=== PATIENT | female | born 1990 | race Caucasian/White ===

== ENCOUNTER 2017-05-29 20:32 | Outpatient (CLI) | payer BC ==
[~2017-05-29] VITALS: Ht 157.5 cm; Wt 62.0 kg
[~2017-05-29 20:32] MED LIST: IBUP-1222 PO; OXYC-302 PO
== END 2017-05-29 21:05 | disposition home or self-care (01) ==
LOC: LDOP 20:32
PROVIDERS: ATTEND Obstetrics & Gynecology
DX: O36.8130 Decreased fetal movements, third trimester, not applicable or unspecified (principal); Z3A.36 36 weeks gestation of pregnancy
CPT/HCPCS: 59025; 87081; 99211; G0463

== ENCOUNTER 2017-06-18 23:20 | Inpatient (IN) | payer BC ==
[~2017-06-18] VITALS: Ht 157.5 cm; Wt 57.0 kg
[2017-06-18] MEDS: D5%-LACTATED RINGERS 1,000 ML IV SCH (23:45)
[2017-06-18] MEDS ORDERED: OXYTOCIN 30U/ 0.9% NaCL 500ML 500 ML IV ONE (23:45)
[2017-06-18] MEDS ORDERED: NEWBORN KIT ONE (23:50)
[2017-06-18] MEDS ORDERED: OXYTOCIN 30U/ 0.9% NaCL 500ML 500 ML ONE (23:50)
[2017-06-19] MEDS ORDERED: ALUMINUM/MAG/SIMETHICONE 30 ML UDC PO PRN
[2017-06-19] MEDS ORDERED: FENTANYL PF 100 MCG/2ML IVPush PRN
[2017-06-19] MEDS ORDERED: ONDANSETRON 2MG/ML, 2ML IVPush PRN
[2017-06-19] MEDS ORDERED: FENTANYL PF 100 MCG/2ML IV PRN
[2017-06-19] MEDS ORDERED: SODIUM CITRATE/CITRIC ACID 30 ML UDC PO PRN
[2017-06-19] MEDS ORDERED: CALCIUM CARBONATE 500 MG TAB.CHEW PO PRN
[2017-06-19] MEDS ORDERED: TERBUTALINE 1 MG/ML, 1ML IVPush PRN
[2017-06-19] MEDS ORDERED: METOCLOPRAMIDE 5 MG/ML, 2ML IVPush PRN
[2017-06-19] MEDS ORDERED: LIDOCAINE/PF 1.5%-EPI 1:200K, 30ML ONE ×2 (00:21→01:17)
[2017-06-19] MEDS ORDERED: FENTANYL/BUPIV./NS/PF 250 ML EPIDCONT ONE (00:21)
[2017-06-19 00:35] LABS: HEMATOCRIT 39.5 % (34.6-47.8); HEMOGLOBIN 13.7 g/dL (11.7-16.4); WHITE BLOOD COUNT 16.8 x10^3/uL (3.4-10)
[2017-06-19] MEDS ORDERED: FENTANYL/BUPIV./NS/PF 250 ML EPIDCONT SCH (00:42)
[2017-06-19] MEDS: LACTATED RINGERS 1,000 ML IV SCH ×4 (00:42→08:42)
[2017-06-19] MEDS ORDERED: LACTATED RINGERS 1,000 ML IVBOLUS PRN (01:00)
[2017-06-19 02:25] LABS: DAU SCREEN DISCLAIMER
[2017-06-19 06:05] VITALS: BP 106/63
[2017-06-19] MEDS ORDERED: OXYTOCIN 30U/ 0.9% NaCL 500ML 500 ML IV SCH (06:19)
[2017-06-19] MEDS ORDERED: IBUPROFEN 800 MG TABLET PO PRN (06:30)
[2017-06-19] MEDS ORDERED: OXYcodone/APAP 5/325MG TABLET PO PRN ×2 (06:30)
[2017-06-19] MEDS: D5%-LACTATED RINGERS 1,000 ML IV SCH (07:45)
[2017-06-19 11:23] LABS: HEMOGLOBIN 12.8 g/dL (11.7-16.4); WHITE BLOOD COUNT 19.4 x10^3/uL (3.4-10)
[2017-06-19] MEDS: DOCUSATE 100 MG CAPSULE PO PRN ×2 (11:42→19:47)
[2017-06-19] MEDS: PRENATAL VIT/IRON/FA 1 EACH TABLET PO SCH (11:42)
[2017-06-19 11:53] LABS: DIFF TOTAL CELLS COUNTED 100 CELL DIFF
[2017-06-19 11:55] LABS: VERIFY COUNTS? YES
[2017-06-19 15:29] VITALS: BP 91/59
[2017-06-19 19:00] VITALS: BP 106/75
[2017-06-19 23:55] VITALS: BP 96/63
[2017-06-20] MEDS: IBUPROFEN 600 MG TABLET PO PRN ×3 (01:10→16:37)
[2017-06-20 03:24] VITALS: BP 93/54
[2017-06-20 08:00] VITALS: BP 100/66
[2017-06-20] MEDS: DOCUSATE 100 MG CAPSULE PO PRN (08:05)
[2017-06-20] MEDS: PRENATAL VIT/IRON/FA 1 EACH TABLET PO SCH (08:05)
[2017-06-20] MEDS ORDERED: HYDR-3240 PO (10:26)
== END 2017-06-20 21:00 | disposition home or self-care (01) | DRG 775 ==
LOC: LDOP 23:20 → OBSVTOIN 23:46 → LDIP 23:46 → INTOOBSV 23:46 → 2NW 06-19 05:56
PROVIDERS: ADMIT Obstetrics & Gynecology; ATTEND Obstetrics & Gynecology
PROC: 10E0XZZ Delivery of Products of Conception, External Approach (ICD-10-PCS; principal; 2017-06-19)
PROC: 3E0S3BZ Introduction of Anesthetic Agent into Epidural Space, Percutaneous Approach (ICD-10-PCS; 2017-06-19)
PROC: 00HU33Z Insertion of Infusion Device into Spinal Canal, Percutaneous Approach (ICD-10-PCS; 2017-06-19)
DX: O69.1XX0 Labor and delivery complicated by cord around neck, with compression, not applicable or unspecified (principal); Z37.0 Single live birth; Z3A.39 39 weeks gestation of pregnancy
CPT/HCPCS: 36415; 80307; 82803; 85025; 86850; 86900; G0479; J7120